=== PATIENT | female | born 1955 | race Caucasian/White ===

== ENCOUNTER → 2024-08-31 | Outpatient (CLI) | payer MEDICARE ==
[2024-08-31 15:27] VITALS: BP 117/72; PULSE 61; RESP 16; TEMP 97.8
--- NOTE | 2024-08-31 15:59 | P.SLEEP ---
History of Present Illness DATE: 08/31/2024 CONSULTATION/NEW PATIENT EVALUATION HISTORY OF PRESENT ILLNESS/SLEEP-WAKE EVALUATION: 68-year-old lady had been evaluated in the sleep center for possible obstructive sleep apnea hypopnea syndrome. Patient has history of obstructive sleep apnea hypopnea syndrome diagnosed about 8 years ago in [place]. Patient stopped using show CPAP equipment many years ago. SLEEP SCHEDULE: Usually sleep schedule from 9 PM to 6 AM 7 days a week. FALLING ASLEEP: Sometimes patient has difficulties with falling asleep. DURING SLEEP: Patient has loud snoring and witnessed episodes of stop breathing during the sleep by her . Positive history of multiple awakenings from sleep with nocturia no history of hypnogogical hallucinations, sleep paralysis, or cataplexy. DURING THE DAY/WAKE STATE: In the morning patient wake up tired, has difficulties to pay attention, has problems with memory, concentration.. Epwor th sleepiness scale is increased to 12. Patient takes nap at 3 PM. PAST MEDICAL HISTORY: Hypertension, fibromyalgia, arthritis, hyperlipidemia, diabetes mellitus, hypothyroidism. PAST SURGICAL HISTORY: Back surgery x 2. MEDICATIONS: Please see below. SOCIAL HISTORY: Please see below. FAMILY HISTORY: Please see below. REVIEW OF SYSTEMS: Snoring, multiple awakenings from sleep, sleepiness during the day. No fevers. No double vision. No recent chest pain. No shortness of breath. No abdominal pain. No bleeding episodes. No blood in urine. No seizure episodes. PHYSICAL EXAMINATION: GENERAL: A pleasant patient without any distress. VITAL SIGNS: Please see below, weight 126.3 pounds, BMI 24.2. HEENT: PERRLA, EOMI. Evaluation of oropharynx showed tongue protrudes midline, low position of soft palate Mallampati 4, retrognathia 4 mm. NECK: Supple. No JVD. Thyroid is not palpable. 13-1/3 inches in circumference. LUNGS: Clear to percussion and to auscultation. Good air exchange. No wheezing or rhonchi. HEART: S1, S2 regular. No murmurs, gallops or rubs. ABDOMEN: Soft and nontender. Bowel sounds are present. No organomegaly appreciated. EXTREMITIES: No clubbing or cyanosis. [employer]IM[employer]: Awake, alert, and oriented x3. Cranial nerves 2 to 7 intact. There is no fasciculation or atrophy noted. No focal deficits observed. ASSESSMENT: 1. Loud snoring, witnessed episodes of stop breathing during the sleep, extremely low position of soft palate Mallampati 4, retrognathia 4 mm, history of obstructive sleep apnea in the past. Obstructive sleep apnea hypopnea syndrome. 2. Hypertension. 3. History of fibromyalgia. 4. Hyperlipidemia. 5 history of arthritis. 6 . Diabetes mellitus. 7. Hypothyroidism. 8. Status post back surgery x 2. PLAN: 1. Polysomnography for evaluation of patient's breathing during sleep. 2. Following plan after reading sleep study. 3. Preferable position during sleep on the side. 4. No driving if patient feels any sleepiness. Patient is aware of civil and criminal liability for unsafe driving. 5. Sleep hygiene with regular sleep time for at least 7.5-8 hours. 6. Watching weight. Thank you very much for referring this patient for consultation. Sincerely, Fili Harrington MD, PhD, FAASM. Diplomat of [place] [employer], Sleep Medicine Board by [place] [employer] [employer] Associate of [facility] [place] cc: Gerardo Khan MD Past Medical History Past Medical History: Diabetes Mellitus, Fibromyalgia, Sleep Apnea/CPAP/BIPAP, Thyroid Disorder Additional Past Medical History / Comment(s): Arthritis, snoring History of Any Multi-Drug Resistant Organisms: None Reported Past Surgical History: Back Surgery, Orthopedic Surgery Additional Past Surgical History / Comment(s): back surgeries (1981 and 1986), spine surgery 1999, r shoulder- rotator cuff 1993 Past Psychological History: Depression Smoking Status: Current every day smoker Past Alcohol Use History: Occasional Past Drug Use History: None Reported - Past Family History Father Family Medical History: Cancer, Hypertension, Myocardial Infarction ([place]) Additional Family Medical History / Comment(s): Angina, throat cancer, 3 OH's Mother Family Medical History: Cancer, COPD, CVA/TIA Additional Family Medical History / Comment(s): Lung cancer, Medications and Allergies Home Medications Medication Instructions Recorded Confirmed Type Atorvastatin [Lipitor] 25 mg PO DAILY 08/31/24 08/31/24 History DULoxetine HCL [Cymbalta] 90 mg PO DAILY 08/31/24 08/31/24 History Levothyroxine Sodium [Levoxyl] 100 mcg PO DAILY 08/31/24 08/31/24 History Semaglutide [Ozempic] 0.5 mg SQ WEEKLY 08/31/24 08/31/24 History lisinopriL 30 mg PO DAILY 08/31/24 08/31/24 History Physical Exam Vitals: Vital Signs Temp Pulse Resp BP Pulse Ox 08/31/24 15:24 97.8 F 61 16 117/72 96 Intake and Output 08/31/24 08/31/24 08/31/24 06:59 14:59 22:59 Other: Weight 57.209 kg Sleep Note - Sleep Data ESS Total: 12 - Sleep Note Sleep Note: Temperature: 97.8 F Pulse Rate: 61 Respiratory Rate: 16 Blood Pressure: 117/72 SpO2: 96 Height: 5 ft 0.05 in Weight: 57.209 kg BMI: Neck Circumference: 13.3
== END ==
LOC: 3 N SLEEP 14:55
PROVIDERS: ATTEND Internal Medicine
DX: G47.33 Obstructive sleep apnea (adult) (pediatric) (principal); I10 Essential (primary) hypertension; E78.5 Hyperlipidemia, unspecified; E03.9 Hypothyroidism, unspecified; E11.9 Type 2 diabetes mellitus without complications; Z87.39 Personal history of other diseases of the musculoskeletal system and connective tissue; Z82.61 Family history of arthritis; Z98.890 Other specified postprocedural states
CPT/HCPCS: 99202